=== PATIENT | female | born 1990 | race Caucasian/White ===

== ENCOUNTER → 2020-09-26 13:51 | Outpatient (CLI) | payer OTHER, SELFPAY ==
[2020-10-01 13:27] LABS: HPV Reflexed? NOT INDICATED
== END ==
PROVIDERS: Visit Provider Student in an Organized Health Care Education/Training Program
DX: Z12.4 Encounter for screening for malignant neoplasm of cervix (principal)
CPT/HCPCS: 88175; G0145

== ENCOUNTER → 2022-07-30 | Outpatient (CLI) | payer OTHER, BC, SELFPAY ==
[2022-07-30 13:20] LABS: NATERA MAILED SPECIMEN
== END | disposition home or self-care (01) ==
LOC: LAB 12:16
PROVIDERS: PCP Internal Medicine; Referring Provider Advanced Practice Midwife; Visit Provider Advanced Practice Midwife
DX: Z34.81 Encounter for supervision of other normal pregnancy, first trimester (principal)
CPT/HCPCS: 36415

== ENCOUNTER 2023-03-03 23:20 | Outpatient (CLI) | payer BC, SELFPAY ==
[2023-03-03 23:25] VITALS: BMI 33.3
[2023-03-03 23:30] VITALS: BP 140/75; PULSE 102; TEMP 36.2; O2SAT 96
[2023-03-03 23:35] VITALS: BP 122/73; PULSE 92
--- NOTE | 2023-03-03 23:41 | OB.TRI.NOTE ---
HPI - General HPI Narrative SPARKLE CARD, is a 33 F at 40.0 weeks gestation who presents to triage with contractions. She was seen in office today and started having contractions once home. Reports contractions every 4 minutes for 2-3 hours. Denies any loss of fluid or vaginal bleeding. Positive movement. has been uncomplicated. PFSH PFSH Home Medications [id number]-[id number] 1 mg tablet 1 tab PO DAILY 03/03/23 [History Last Taken 03/02/23] Allergy/AdvReac Type Severity Reaction Status Date / Time No Known Allergies Allergy Verified 03/03/23 23:33 ROS Eyes Eyes: Denies blurry vision Cardiovascular Cardiovascular: Reports none; Denies chest pain at rest, chest pain with activity or dizziness Respiratory/Chest Respiratory/Chest: Denies cough or dyspnea Gastrointestinal Gastrointestinal: Reports none and other; Denies diarrhea or vomiting Genitourinary Genitourinary: Denies dysuria Musculoskeletal Musculoskeletal: Reports none Integumentary Integumentary: Reports none; Denies rash Neurologic Neurologic: Denies dizziness, headache(s) or other visual disturbances Psychiatric Psychiatric: Reports none Physical Exam Const alert and no apparent distress General Appearance: cooperative Orientation / Consciousness: awake Exam Limitations: no limitations HEENT normocephalic Eyes General Eye: normal appearance of both eyes Neck full ROM Chest inspection of chest normal Resp normal respiratory effort and normal air movement Effort and Inspection: symmetric chest movement Auscultation: clear to auscultation bilaterally Cardio regular rate GI soft to palpation, non-tender and non-distended Inspection: and other Back/Spine normal ROM Extremity full ROM, normal capillary refill and no calf tenderness Skin no rashes or lesions noted Neuro oriented x3 and CN's II-XII intact bilaterally Psych mental status grossly normal NST FHR Rate Baby A Baseline: 140 Variability:: Moderate Accelerations:: 15 x 15 Decelerations:: None NST Reactive:: Yes FHR Category:: Category I Uterine Activity:: 2-4 minutes Assessment & Plan (1) Uterine contractions: (2) 40 weeks gestation of : PLAN: Plan CE /-2- no change from office exam and after extended monitoring NST reactive, Cat. 1 tracing Patient desires unmedicated labor and delivery D/C home with follow up in office Dr. Alejandra notified
== END 2023-03-04 03:17 | disposition home or self-care (01) ==
LOC: WPOUT 23:24 → WP 23:25
PROVIDERS: PCP Internal Medicine; Referring Provider Advanced Practice Midwife; Visit Provider Advanced Practice Midwife
DX: O47.1 False labor at or after 37 completed weeks of gestation (principal); Z3A.40 40 weeks gestation of pregnancy
CPT/HCPCS: 59025; 59050

== ENCOUNTER 2023-03-04 11:35 | Inpatient (IN) | payer BC, SELFPAY ==
[2023-03-04] VITALS (30 sets, daily range): BP systolic 109–138; BP diastolic 46–83; PULSE 86–114; TEMP 36.8–37.9; O2SAT 96–100; BMI 32.6
--- NOTE | 2023-03-04 | PLAC_PTH ---
PATIENT: SPARKLE CARD LOC: [facility] U#:[id number] AGE/SX: 33/F ROOM: WP002 RE03/04/[address]: Darcy Jansen CNM : 1990 BED: 1 DIS: 03/06/2023 SPEC #: [id number] RECD: 03/06/23 21:04 STATUS: AISHA SANDOVAL #: [id number] BINTA: 03/04/23 00:[address]: Darcy Jansen DEPT: SURGICAL PATHOLOGY RECD BY: Davide Jenkins ENTERED: 03/07/23 11:27 SP TYPE: PLACENTA OTHR DR: Dr. Bismark Harris MD Tissues: Placenta, NOS Procedures: Surgery Specimen Level V HEADER OPERATION: Vaginal delivery PRE-OP DIAGNOSIS: Marginal cord insertion TISSUE SUBMITTED: Placenta MICROSCOPIC DIAGNOSIS Placenta: Placental disc - third trimester placenta (372 gm). Membranes ? acute chorioamnionitis. Umbilical cord - three blood vessels and mild acute funisitis. SJ:nino 03/08/2023 MICROSCOPIC DESCRIPTION Slides are reviewed. GROSS DESCRIPTION SPECIMEN: PLACENTA / CLINICAL INFORMATION: A. Weight: 3.32 kg B. Gestational Age: 40 weeks C. Sex: Male PLACENTAL WEIGHT (POST FIXATION): 372 gm PLACENTAL DIMENSIONS: 15.5 x 14.0 x 2.5 cm PLACENTAL SHAPE: Usual ovoid PLACENTAL WEIGHT FOR GESTATIONAL AGE: Within 10-99th percentile MEMBRANES - Present A. Insertion: Marginal B. Site of rupture from edge: At edge of placental disc C. Color of membrane: Bryson-roe D. Abnormalities: None UMBILICAL CORD - Present A. Color: Bryson-roe B. Insertion: Membranous C. Length: 35.0 cm D. Diameter: 1.2 cm E. Number of vessels: Three F. Abnormalities: None PLACENTAL DISC - Present A. Color of surface: Bryson-roe B. surface abnormalities: None C. Maternal cotyledons: Intact with minimal tears D. Attached retro placental clot: No clot E. Cut surface: Dark red and spongy F. Lesions: None G. Separate clot: 7.0 x 8.0 x 1.5 cm SECTIONS SUBMITTED: 1. Umbilical cord ( end notched) 2. Umbilical cord, placental end 3. Membrane roll 4. Placental disc, and maternal surfaces 5. Placental disc, and maternal surfaces 6. Placental disc, and maternal surfaces AM:nino 03/07/2023 TC:2 CPT: 26970
--- NOTE | 2023-03-04 11:52 | PCM.HP.OB ---
HPI - General General Date of Admission: 03/04/23 Date of Service: 03/04/23 Chief Complaint: labor HPI Narrative SPARKLE CARD, is a 33-year-old 2 para 0-0-1-0 who presents at 40-1/7 weeks gestation with EDC of 03/03/2023 presents complaining contractions since yesterday morning. They have been every 5 minutes overnight. She denies any vaginal bleeding or leaking of fluid. When she arrived on the unit this morning, she stated she was just so exhausted and uncomfortable she had to come back in. She was observed last night and sent home. He was still 1-1/2 cm at that time. She is now 490-1 station. Maternal Data Information Final TEO: 03/03/23 Gestational age: 40 1/7 PFSH PFS Home Medications [id number]-[id number]-[id number] 1 mg tablet 1 tab PO DAILY 03/03/23 [History Last Taken 03/02/23] Allergy/AdvReac Type Severity Reaction Status Date / Time No Known Allergies Allergy Verified 03/03/23 23:33 ROS Constitutional Constitutional: Denies fatigue, fever(s) or malaise Eyes Eyes: Denies change in vision ENT HEENT: Denies dizziness or headache(s) Cardiovascular Cardiovascular: Denies chest pain, dyspnea or lightheadedness Respiratory/Chest Respiratory/Chest: Denies cough or dyspnea Gastrointestinal Gastrointestinal: Denies change in bowel habits Genitourinary Genitourinary: Denies burning urination or genital lesions Integumentary Integumentary: Denies rash Neurologic Neurologic: Denies confusion, dizziness, headache(s), numbness or weakness Physical Exam Const alert and no apparent distress General Appearance: cooperative HEENT normocephalic Resp normal respiratory effort Cardio regular rate GI soft to palpation GI Narrative: gravid, nontender, appropriate for gestational age Extremity no calf tenderness General Extremity: edema Skin no wounds Rashes: No rashes noted Psych activity/motor behavior normal Labs Labs Labs: No Data to Display Assessment & Plan (1) 40 weeks gestation of : PLAN: 33-year-old 2 para 0 presents at 40-1/7 weeks gestation with labor. Suspected rupture of membranes on exam. Estimated weight is less than 4500 g clinically and pelvis clinically adequate to expect vaginal delivery. May need Pitocin for augmentation. May have routine pain control measures as desired. (2) Spontaneous onset of labor:
[2023-03-04] MEDS: Lactated Ringers 1,000 ML 50 ML IV (12:18)
[2023-03-04 12:21] LABS: Absolute Lymphocyte Count 1.43 X10^3/uL (0.83-4.51); Absolute Neutrophil Count 15.3 X10^3/uL (2.0-7.7); Basophil# 0.04 X10^3/uL; Basophil% 0.2 % (0-1); Hematocrit 37.7 % (37-47); Hemoglobin 12.7 g/dL (12.0-15.0); Lymphocyte # 1.43 X10^3/ul (0.83-4.51); Lymphocyte % 8.1 % (19-41); Mean Corp Hgb Conc 33.7 g/dL (32-36); Mean Corpuscular Hgb 31.2 pg (27.0-32.0); Mean Corpuscular Volume 92.6 fL (81-99); Mean Platelet Vol. 11.8 fl (6.2-12.0); Monocyte# 0.79 X10^3/uL; Monocyte% 4.5 % (0-10); NRBC Flagged by Analyzer 0 % (0-5); Neutrophil % 86.6 % (47-70); Platelet Count 203 K/mm3 (150-450); RBC Distribution Width CV 12.6 % (11.6-14.6); RBC Distribution Width SD 42.5 fl (35.1-43.9); Red Blood Count 4.07 M/mm3 (4.2-5.4); White Blood Count 17.7 K/mm3 (4.4-11.0)
[2023-03-04] MEDS: LACTATED RINGERS 500 ML 999 ML IV (12:47)
[2023-03-04 12:51] LABS: Syphilis Antibodies Non-reactive
[2023-03-04] MEDS: Oxytocin 15 Units/NS 250ml 15 UNITS/250 ML IV.SOLN 2 UNITS IV (14:26)
[2023-03-04] MEDS: fentaNYL-bupivacaine (epidural) 100 ML BAG EPIDURAL (14:27)
[2023-03-04] MEDS: Oxytocin 15 Units/NS 250ml 15 UNITS/250 ML IV.SOLN 83 UNITS IV (18:25)
--- NOTE | 2023-03-04 19:10 | EX.PCM.OBRPT ---
Assessment & Plan (1) Vaginal delivery: (2) Second degree perineal laceration: (3) Retained placenta: (4) Lactating mother: Maternal Data Information TEO Calculator Estimated Delivery Date Method Current WG Current Estimate 03/03/23 Manual 40w 1d Final TEO Source: LMP Vaginal Delivery Maternal Presentation Maternal Presentation: Active Labor Type of Induction: Pitocin and Amniotomy Operative Information Date of Procedure: 03/04/23 Pre-Operative Diagnosis: active labor Post-Operative Diagnosis: , second degree perineal laceration Surgery / Procedure Performed: Spontaneous Vaginal Delivery Type of Anesthesia: Epidural Estimated Blood Loss: 500 ml Time of Delivery: 18:05 Findings Description of Procedure: Progressed to complete with urge to push. Epidural for pain management. of viable male over second degree perineal laceration. APGARS 8,9 respectively. Infant head delivered with body immediately forthcoming, CAN x 1 loose, delivered through. Placed on maternal abdomen, strong cry. Mouth and nares suctioned for secretions. Pitocin started for active 3rd stage management. Cord doubly clamped and cut after pulsations ceased, delayed cord clamping. Gentle cord traction and counter pressure and cord avulsed with patient pushing efforts. Marginal cord insertion and very thin unbilical cord. Manual removal of placenta presenting through cervical os. Patient tolerated well. Placenta delivered, 3 vessel cord intact. Perineum inspected and revealed 2nd degree perineal laceration and bilateral sulcus laceration. Repaired with 3.0 vicryl rapide x2 and epidural. Fundus firm and hemostasis achieved. EBL 500ml Mom and baby stable, planning to breastfeed. Family bonding well. Dr Ayoub. notified of delivery. Presentation: Vertex Amniotic Membrane Rupture Type: Artificial Amniotic Fluid Description: Clear Placental Delivery Description: Manual Removal Placenta Disposition: Sent to Pathology Cord Vessel Description: 3 Vessels Cord Entanglement: Around neck x 1, loose Nuchal Cord Compression: Without compression A Gender: Male (1 minute): 8 (5 minute): 9 Delayed Cord Clamping: Yes Post Vaginal Delivery Medications Given After Delivery: IV Pitocin Laceration: 2nd degree Complication Complications: None
[2023-03-04] MEDS: Cefazolin 2 GM in 0.9% Normal Saline 100 ML IV (21:27)
--- NOTE | 2023-03-04 23:41 | PCM.NY.DEL ---
Delivery Attendance Physical Exam Apgars/Vital Signs/Weight: Weight: 91.739 kg General Weight: 91.739 kg
--- NOTE | 2023-03-04 23:41 | PCM.NUR.HP ---
Objective Objective Data: 03/04/23 12:10 03/04/23 12:10 03/04/23 12:10 Temperature Temperature Source Pulse Rate 86 Blood Pressure 129/80 H BP Systolic 129 BP Diastolic 80 Pulse Ox 96 03/04/23 12:10 03/04/23 12:10 03/04/23 13:09 Temperature 99.3 F H 98.7 F Temperature Source Temporal Pulse Rate Blood Pressure BP Systolic BP Diastolic Pulse Ox 03/04/23 13:20 03/04/23 13:20 03/04/23 13:25 Temperature Temperature Source Pulse Rate 102 H Blood Pressure 137/79 H BP Systolic 137 BP Diastolic 79 Pulse Ox 98 03/04/23 13:25 03/04/23 13:31 03/04/23 13:31 Temperature Temperature Source Pulse Rate 111 H 96 Blood Pressure 127/74 H BP Systolic 127 BP Diastolic 74 Pulse Ox 03/04/23 13:36 03/04/23 13:36 03/04/23 13:41 Temperature Temperature Source Pulse Rate 96 Blood Pressure 129/73 H 128/70 H BP Systolic 129 128 BP Diastolic 73 70 Pulse Ox 03/04/23 13:41 03/04/23 13:47 03/04/23 13:47 Temperature Temperature Source Pulse Rate 105 H 95 Blood Pressure 129/71 H BP Systolic 129 BP Diastolic 71 Pulse Ox 03/04/23 13:52 03/04/23 13:52 03/04/23 13:56 Temperature Temperature Source Pulse Rate 99 Blood Pressure 127/72 H 126/73 H BP Systolic 127 126 BP Diastolic 72 73 Pulse Ox 03/04/23 13:56 03/04/23 14:01 03/04/23 14:01 Temperature Temperature Source Pulse Rate 98 95 Blood Pressure 131/73 H BP Systolic 131 BP Diastolic 73 Pulse Ox 03/04/23 14:06 03/04/23 14:06 03/04/23 14:11 Temperature Temperature Source Pulse Rate 106 H Blood Pressure 121/76 H 122/66 H BP Systolic 121 122 BP Diastolic 76 66 Pulse Ox 03/04/23 14:11 03/04/23 14:17 03/04/23 14:17 Temperature Temperature Source Pulse Rate 88 94 Blood Pressure 123/71 H BP Systolic 123 BP Diastolic 71 Pulse Ox 03/04/23 14:21 03/04/23 14:21 03/04/23 14:30 Temperature 98.6 F Temperature Source Pulse Rate 103 H Blood Pressure 138/83 H BP Systolic 138 BP Diastolic 83 Pulse Ox 03/04/23 15:06 03/04/23 15:06 03/04/23 15:05 Temperature Temperature Source Pulse Rate 104 H Blood Pressure 114/71 BP Systolic 114 BP Diastolic 71 Pulse Ox 99 03/04/23 15:06 03/04/23 15:06 03/04/23 16:09 Temperature 98.2 F Temperature Source Temporal Pulse Rate Blood Pressure 126/74 H BP Systolic 126 BP Diastolic 74 Pulse Ox 03/04/23 16:09 03/04/23 16:09 03/04/23 16:30 Temperature Temperature Source Temporal Pulse Rate 103 H Blood Pressure BP Systolic BP Diastolic Pulse Ox 100 03/04/23 16:30 03/04/23 18:30 03/04/23 18:30 Temperature 98.2 F Temperature Source Pulse Rate 108 H Blood Pressure 124/80 H BP Systolic 124 BP Diastolic 80 Pulse Ox 03/04/23 18:30 03/04/23 18:45 03/04/23 18:45 Temperature Temperature Source Temporal Pulse Rate 106 H Blood Pressure 112/46 L BP Systolic 112 BP Diastolic 46 Pulse Ox 03/04/23 18:30 03/04/23 19:00 03/04/23 19:00 Temperature 100.1 F H Temperature Source Pulse Rate 114 H Blood Pressure 113/52 L BP Systolic 113 BP Diastolic 52 Pulse Ox 03/04/23 19:12 03/04/23 19:14 03/04/23 19:14 Temperature 99.6 F H Temperature Source Pulse Rate 96 Blood Pressure 118/68 BP Systolic 118 BP Diastolic 68 Pulse Ox 03/04/23 19:29 03/04/23 19:29 03/04/23 19:44 Temperature Temperature Source Pulse Rate 100 Blood Pressure 110/63 113/62 BP Systolic 110 113 BP Diastolic 63 62 Pulse Ox 03/04/23 19:44 03/04/23 19:44 03/04/23 19:44 Temperature 100.3 F H Temperature Source Temporal Pulse Rate 93 Blood Pressure BP Systolic BP Diastolic Pulse Ox 03/04/23 19:59 03/04/23 19:59 03/04/23 19:58 Temperature 99.7 F H Temperature Source Pulse Rate 103 H Blood Pressure 109/61 BP Systolic 109 BP Diastolic 61 Pulse Ox 03/04/23 20:14 03/04/23 20:14 Temperature Temperature Source Pulse Rate 97 Blood Pressure 117/62 BP Systolic 117 BP Diastolic 62 Pulse Ox Weight: 91.739 kg Vital Signs Temp Pulse BP Pulse Ox 03/04/23 20:14 97 03/04/23 20:14 117/62 03/04/23 19:58 99.7 F H 03/04/23 19:59 103 H 03/04/23 19:59 109/61 03/04/23 19:44 100.3 F H 03/04/23 19:44 93 03/04/23 19:44 113/62 03/04/23 19:29 100 03/04/23 19:29 110/63 03/04/23 19:14 96 03/04/23 19:14 118/68 03/04/23 19:12 99.6 F H 03/04/23 19:00 114 H 03/04/23 19:00 113/52 L 03/04/23 18:30 100.1 F H 03/04/23 18:45 106 H 03/04/23 18:45 112/46 L 03/04/23 18:30 108 H 03/04/23 18:30 124/80 H 03/04/23 16:30 98.2 F 03/04/23 16:09 100 03/04/23 16:09 103 H 03/04/23 16:09 126/74 H 03/04/23 15:06 98.2 F 03/04/23 15:05 99 03/04/23 15:06 104 H 03/04/23 15:06 114/71 03/04/23 14:30 98.6 F 03/04/23 14:21 103 H 03/04/23 14:21 138/83 H 03/04/23 14:17 94 03/04/23 14:17 123/71 H 03/04/23 14:11 88 03/04/23 14:11 122/66 H 03/04/23 14:06 106 H 03/04/23 14:06 121/76 H 03/04/23 14:01 95 03/04/23 14:01 131/73 H 03/04/23 13:56 98 03/04/23 13:56 126/73 H 03/04/23 13:52 99 03/04/23 13:52 127/72 H 03/04/23 13:47 95 03/04/23 13:47 129/71 H 03/04/23 13:41 105 H 03/04/23 13:41 128/70 H 03/04/23 13:36 96 03/04/23 13:36 129/73 H 03/04/23 13:31 96 03/04/23 13:31 127/74 H 03/04/23 13:25 111 H 03/04/23 13:25 137/79 H 03/04/23 13:20 98 03/04/23 13:20 102 H 03/04/23 13:09 98.7 F 03/04/23 12:10 99.3 F H 03/04/23 12:10 96 03/04/23 12:10 86 03/04/23 12:10 129/80 H Lab tests last 48H 03/04/23 03/04/23 03/04/23 11:55 11:55 11:55 WBC 17.7 H RBC 4.07 L Hgb 12.7 Hct 37.7 MCV 92.6 MCH 31.2 MCHC 33.7 RDW Std Deviation 42.5 RDW Coeff of Arvin 12.6 Plt Count 203 MPV 11.8 Immature Gran % (Auto) 0.600 Neut % (Auto) 86.6 H Lymph % (Auto) 8.1 L [place] % (Auto) 4.5 Eos % (Auto) 0.0 Baso % (Auto) 0.2 Absolute Neuts (auto) 15.3 H Absolute Lymphs (auto) 1.43 Nucleated RBC % 0 Syphilis Total Ab Non-reactive Blood Type A POSITIVE Antibody Screen NEGATIVE Vital Signs Vital Signs Vital Signs: 03/04/23 12:10 03/04/23 12:10 03/04/23 12:10 Temperature Temperature Source Pulse Rate 86 Blood Pressure 129/80 H BP Systolic 129 BP Diastolic 80 Pulse Ox 96 03/04/23 12:10 03/04/23 12:10 03/04/23 13:09 Temperature 99.3 F H 98.7 F Temperature Source Temporal Pulse Rate Blood Pressure BP Systolic BP Diastolic Pulse Ox 03/04/23 13:20 03/04/23 13:20 03/04/23 13:25 Temperature Temperature Source Pulse Rate 102 H Blood Pressure 137/79 H BP Systolic 137 BP Diastolic 79 Pulse Ox 98 03/04/23 13:25 03/04/23 13:31 03/04/23 13:31 Temperature Temperature Source Pulse Rate 111 H 96 Blood Pressure 127/74 H BP Systolic 127 BP Diastolic 74 Pulse Ox 03/04/23 13:36 03/04/23 13:36 03/04/23 13:41 Temperature Temperature Source Pulse Rate 96 Blood Pressure 129/73 H 128/70 H BP Systolic 129 128 BP Diastolic 73 70 Pulse Ox 03/04/23 13:41 03/04/23 13:47 03/04/23 13:47 Temperature Temperature Source Pulse Rate 105 H 95 Blood Pressure 129/71 H BP Systolic 129 BP Diastolic 71 Pulse Ox 03/04/23 13:52 03/04/23 13:52 03/04/23 13:56 Temperature Temperature Source Pulse Rate 99 Blood Pressure 127/72 H 126/73 H BP Systolic 127 126 BP Diastolic 72 73 Pulse Ox 03/04/23 13:56 03/04/23 14:01 03/04/23 14:01 Temperature Temperature Source Pulse Rate 98 95 Blood Pressure 131/73 H BP Systolic 131 BP Diastolic 73 Pulse Ox 03/04/23 14:06 03/04/23 14:06 03/04/23 14:11 Temperature Temperature Source Pulse Rate 106 H Blood Pressure 121/76 H 122/66 H BP Systolic 121 122 BP Diastolic 76 66 Pulse Ox 03/04/23 14:11 03/04/23 14:17 03/04/23 14:17 Temperature Temperature Source Pulse Rate 88 94 Blood Pressure 123/71 H BP Systolic 123 BP Diastolic 71 Pulse Ox 03/04/23 14:21 03/04/23 14:21 03/04/23 14:30 Temperature 98.6 F Temperature Source Pulse Rate 103 H Blood Pressure 138/83 H BP Systolic 138 BP Diastolic 83 Pulse Ox 03/04/23 15:06 03/04/23 15:06 03/04/23 15:05 Temperature Temperature Source Pulse Rate 104 H Blood Pressure 114/71 BP Systolic 114 BP Diastolic 71 Pulse Ox 99 03/04/23 15:06 03/04/23 15:06 03/04/23 16:09 Temperature 98.2 F Temperature Source Temporal Pulse Rate Blood Pressure 126/74 H BP Systolic 126 BP Diastolic 74 Pulse Ox 03/04/23 16:09 03/04/23 16:09 03/04/23 16:30 Temperature Temperature Source Temporal Pulse Rate 103 H Blood Pressure BP Systolic BP Diastolic Pulse Ox 100 03/04/23 16:30 03/04/23 18:30 03/04/23 18:30 Temperature 98.2 F Temperature Source Pulse Rate 108 H Blood Pressure 124/80 H BP Systolic 124 BP Diastolic 80 Pulse Ox 03/04/23 18:30 03/04/23 18:45 03/04/23 18:45 Temperature Temperature Source Temporal Pulse Rate 106 H Blood Pressure 112/46 L BP Systolic 112 BP Diastolic 46 Pulse Ox 03/04/23 18:30 03/04/23 19:00 03/04/23 19:00 Temperature 100.1 F H Temperature Source Pulse Rate 114 H Blood Pressure 113/52 L BP Systolic 113 BP Diastolic 52 Pulse Ox 03/04/23 19:12 03/04/23 19:14 03/04/23 19:14 Temperature 99.6 F H Temperature Source Pulse Rate 96 Blood Pressure 118/68 BP Systolic 118 BP Diastolic 68 Pulse Ox 03/04/23 19:29 03/04/23 19:29 03/04/23 19:44 Temperature Temperature Source Pulse Rate 100 Blood Pressure 110/63 113/62 BP Systolic 110 113 BP Diastolic 63 62 Pulse Ox 03/04/23 19:44 03/04/23 19:44 03/04/23 19:44 Temperature 100.3 F H Temperature Source Temporal Pulse Rate 93 Blood Pressure BP Systolic BP Diastolic Pulse Ox 03/04/23 19:59 03/04/23 19:59 03/04/23 19:58 Temperature 99.7 F H Temperature Source Pulse Rate 103 H Blood Pressure 109/61 BP Systolic 109 BP Diastolic 61 Pulse Ox 03/04/23 20:14 03/04/23 20:14 Temperature Temperature Source Pulse Rate 97 Blood Pressure 117/62 BP Systolic 117 BP Diastolic 62 Pulse Ox Weight Weight: 91.739 kg Body Mass Index (BMI) 32.6 General Weight: 91.739 kg
--- NOTE | 2023-03-04 23:41 | TRANSUM.NUR ---
Providers Date of Admission: 03/04/23 Primary Care Physician: Dr. Bismark Harris MD Reason For Visit: VAGINAL DELIVERY Diagnosis Discharge Diagnosis (1) Vaginal delivery: Status: Acute Code(s): O80 - Encounter for full-term uncomplicated delivery (2) Second degree perineal laceration: Status: Acute Code(s): O70.1 - Second degree perineal laceration during delivery (3) Retained placenta: Status: Acute Code(s): O73.0 - Retained placenta without hemorrhage (4) Lactating mother: Status: Acute Code(s): Z39.1 - Encounter for care and examination of lactating mother Assessment Medication Administrations: Medication Administrations Generic Name Dose Route Start Last Admin Trade Name Freq PRN Reason Stop Dose Admin Oxytocin/Sodium Chloride 15 units in 250 mls @ 83 mls/hr 03/04/23 21:00 03/04/23 21:30 IV 03/05/23 00:00 Infused .Q3H1M SOFIA Infusion Discontinued Medications Generic Name Dose Route Start Last Admin Trade Name Freq PRN Reason Stop Dose Admin Fentanyl/Bupivacaine/Sodium Chlor 0 ml 03/04/23 13:40 03/04/23 14:27 Fentanyl-Bupivacaine (Epidural) 100 Ml Bag EPIDURAL 100 ml UD SOFIA Administration Protocol Lactated Ringer's 500 mls @ 999 mls/hr 03/04/23 11:54 03/04/23 13:21 Lactated Ringers IV Infused .Q31M PRN Infusion Epidural Lactated Ringer's 1,000 mls @ 50 mls/hr 03/04/23 11:55 03/04/23 12:18 IV 50 mls/hr .Q20H SOFIA Administration Oxytocin/Sodium Chloride 15 units in 250 mls @ 2 mls/hr 03/04/23 14:10 03/04/23 18:05 IV Infused .Q125H SOFIA Infusion Cefazolin Sodium 2 gm/ Sodium 110 mls @ 150 mls/hr 03/04/23 20:53 03/04/23 22:15 Chloride IV 03/04/23 21:36 Infused X1 ONE Infusion History/Labs/Procedures History/Labs/Procedures: Temp Pulse BP Pulse Ox 99.7 F H 97 117/62 100 03/04/23 19:58 03/04/23 20:14 03/04/23 20:14 03/04/23 16:09 Weight: 91.739 kg Labs (Last 48 Hours) 03/04/23 03/04/23 03/04/23 11:55 11:55 11:55 WBC 17.7 H RBC 4.07 L Hgb 12.7 Hct 37.7 MCV 92.6 MCH 31.2 MCHC 33.7 RDW Std Deviation 42.5 RDW Coeff of Arvin 12.6 Plt Count 203 MPV 11.8 Immature Gran % (Auto) 0.600 Neut % (Auto) 86.6 H Lymph % (Auto) 8.1 L [place] % (Auto) 4.5 Eos % (Auto) 0.0 Baso % (Auto) 0.2 Absolute Neuts (auto) 15.3 H Absolute Lymphs (auto) 1.43 Nucleated RBC % 0 Syphilis Total Ab Non-reactive Blood Type A POSITIVE Antibody Screen NEGATIVE Medications at Discharge Home Medications [id number] 1 mg tablet 1 tab PO DAILY 03/03/23 General Weight: 91.739 kg Discharge Plan Admission Admit Date/Time: 03/04/23 11:35 Attending Provider: Darcy Jansen Primary Care Provider: Bismark Harris Discharge Orders/Prescriptions Prescriptions: No Action 1 mg Tablet 1 tab PO DAILY Referrals / Follow Up: Bismark Harris MD [Primary Care Provider] -
[2023-03-05] VITALS: BP 113/79; PULSE 105; RESP 16; TEMP 36.9
--- NOTE | 2023-03-05 00:25 | NURSING ---
Mother began pumping at 23:15. She is pumping both breasts for 20 minutes every 3hrs then hand expressing and collecting her colostrum in a syringe. At this fist pump session, she obtained drops from pumping which were swabbed and taken to the [facility], then collected 3cc of colostrum by hand expressing. Mother will continue with this pumping plan every 3hrs.
[2023-03-05 04:00] VITALS: BP 106/54; PULSE 93; RESP 16; TEMP 36.7
[2023-03-05 04:49] LABS: Absolute Lymphocyte Count 1.73 X10^3/uL (0.83-4.51); Absolute Neutrophil Count 14.1 X10^3/uL (2.0-7.7); Basophil# 0.05 X10^3/uL; Basophil% 0.3 % (0-1); Eosinophil# 0.02 X10^3/uL; Eosinophils% 0.1 % (0-5); Hematocrit 30.4 % (37-47); Hemoglobin 10.2 g/dL (12.0-15.0); Lymphocyte # 1.73 X10^3/ul (0.83-4.51); Lymphocyte % 10.2 % (19-41); Mean Corp Hgb Conc 33.6 g/dL (32-36); Mean Corpuscular Hgb 31.6 pg (27.0-32.0); Mean Corpuscular Volume 94.1 fL (81-99); Mean Platelet Vol. 11.1 fl (6.2-12.0); Monocyte# 0.93 X10^3/uL; Monocyte% 5.5 % (0-10); NRBC Flagged by Analyzer 0 % (0-5); Neutrophil # 14.13 X10^3/uL (2.7-7.7); Neutrophil % 83.3 % (47-70); Platelet Count 169 K/mm3 (150-450); RBC Distribution Width CV 12.6 % (11.6-14.6); RBC Distribution Width SD 43.2 fl (35.1-43.9); Red Blood Count 3.23 M/mm3 (4.2-5.4)
[2023-03-05] MEDS: Acetaminophen 500 MG Tablet 1000 MG PO (05:37)
[2023-03-05 08:03] VITALS: BP 93/52; PULSE 81; RESP 16; TEMP 36.3
--- NOTE | 2023-03-05 10:12 | PN.OBGYN_ITS ---
Subjective Subjective Doing well per patient and nursing staff. Ambulating and taking PO without difficulty. Voiding and passing flatus. Pain controlled. Denies headache, visual changes, chest pain, shortness of breath, leg pain or increased bleeding. Lochia normal. Objective Data Objective Data Vital Signs: Vital Signs Temp Pulse Resp BP Pulse Ox O2 Del Method 97.3 F L 81 16 93/52 L 100 Room Air 03/05/23 08:03 03/05/23 08:03 03/05/23 08:03 03/05/23 08:03 03/04/23 16:09 03/05/23 08:03 Oxygen Delivery Method Room Air Weight: 202 lb 4 oz Body Mass Index (BMI) 32.6 Intake & Output: Intake and Output for Last 24 Hours 03/03/23 03/04/23 03/05/23 23:59 23:59 23:59 Intake Total 881.73 / 1466.73 585 / 585 Output Total 600 / 600 500 / 500 Balance 281.73 / 866.73 85 / 85 Lab / Micro Data Result Diagrams: 03/05/23 04:39 Labs: Laboratory Results - last 24 hr 03/04/23 11:55: WBC 17.7 H, RBC 4.07 L, Hgb 12.7, Hct 37.7, MCV 92.6, MCH 31.2, MCHC 33.7, RDW Std Deviation 42.5, RDW Coeff of Arvin 12.6, Plt Count 203, MPV 11.8, Immature Gran % (Auto) 0.600, Neut % (Auto) 86.6 H, Lymph % (Auto) 8.1 L, [place] % (Auto) 4.5, Eos % (Auto) 0.0, Baso % (Auto) 0.2, Absolute Neuts (auto) 15.3 H, Absolute Lymphs (auto) 1.43, Nucleated RBC % 0 03/04/23 11:55: Blood Type A POSITIVE, Antibody Screen NEGATIVE 03/04/23 11:55: Syphilis Total Ab Non-reactive 03/05/23 04:39: WBC 17.0 H, RBC 3.23 L, Hgb 10.2 L, Hct 30.4 L, MCV 94.1, MCH 31.6, MCHC 33.6, RDW Std Deviation 43.2, RDW Coeff of [place]vin 12.6, Plt Count 169, MPV 11.1, Immature Gran % (Auto) 0.600, Neut % (Auto) 83.3 H, Lymph % (Auto) 10.2 L, [place] % (Auto) 5.5, Eos % (Auto) 0.1, Baso % (Auto) 0.3, Absolute Neuts (auto) 14.1 H, Absolute Lymphs (auto) 1.73, Nucleated RBC % 0 ROS Constitutional Constitutional: Reports systems reviewed and no addt'l complaints, except as documented; Denies headache(s) Eyes Eyes: Denies acute decrease in peripheral vision, blurry vision or change in vision ENT HEENT: Reports systems reviewed and no addt'l complaints, except as documented Cardiovascular Cardiovascular: Denies chest pain or dizziness Respiratory/Chest Respiratory/Chest: Denies cough, dyspnea, dyspnea on exertion, shortness of breath at rest or shortness of breath with exertion Gastrointestinal Gastrointestinal: Denies abdominal pain, diarrhea, nausea or vomiting Genitourinary Genitourinary: Denies abdominal discomfort Musculoskeletal Musculoskeletal: Denies limited range of motion Integumentary Integumentary: Reports systems reviewed and no addt'l complaints, except as documented Neurologic Neurologic: Reports systems reviewed and no addt'l complaints, except as documented Psychiatric Psychiatric: Reports systems reviewed and no addt'l complaints, except as documented Endocrine Endocrinology: Reports systems reviewed and no addt'l complaints, except as documented Hematologic/Lymphatic Hematologic/Lymphatic: Reports systems reviewed and no addt'l complaints, except as documented Allergic/Immunologic Allergic/Immunologic: Reports systems reviewed and no addt'l complaints, except as documented Physical Exam Const alert and oriented x3 General Appearance: cooperative Orientation / Consciousness: awake, oriented to person, oriented to place and oriented to time Exam Limitations: no limitations HEENT normocephalic Head and Scalp: normal to inspection, normocephalic and atraumatic Face and Sinus: normal facial exam Eyes General Eye: normal appearance of both eyes Neck full ROM Chest Chest: symmetrical chest wall rise Resp normal respiratory effort and normal air movement Auscultation: clear to auscultation bilaterally Cardio regular rate, regular rhythm, S1 normal heart sound, S2 normal heart sound, no murmurs, no rub, no gallops and no clicks GI normal to inspection, nondistended, normoactive bowel sounds and non-tender appearance of the vagina normal Bladder / Kidney Exam: no CVA tenderness Back/Spine normal ROM Extremity normal to inspection and full ROM Skin no rashes or lesions noted Neuro oriented x3, CN's II-XII intact bilaterally and moves all extremities Sensorium / Orientation: awake, alert and oriented to person Motor Exam: clonus absent Deep Tendon Reflexes: Rt Patellar (L4): 2+ and Lt Patellar (L4): 2+ Assessment & Plan (1) Lactating mother: (2) Second degree perineal laceration: (3) Vaginal delivery: PLAN: Plan 1) PPD#1 2) Vitals stable 3) I&O 4) Pain management 5) Baby in SCN, pumping 6) Planning D/C tomorrow or to hotel status
[2023-03-05 11:26] VITALS: BP 115/71; PULSE 97; RESP 16; TEMP 36.8
[2023-03-05] MEDS: Prenatal Vits Tablet 1 TABLET PO (11:32)
[2023-03-05 15:41] VITALS: BP 110/74; PULSE 103; RESP 16; TEMP 37.2
[2023-03-05 19:59] VITALS: BP 126/78; PULSE 112; RESP 20; TEMP 37.1; O2SAT 97
[2023-03-06 03:00] VITALS: BP 129/69; PULSE 89; RESP 16; TEMP 36.8
[2023-03-06 09:30] VITALS: BP 119/86; PULSE 77; RESP 16; TEMP 36.1
--- NOTE | 2023-03-06 09:32 | PCM.PN.OB ---
Subjective Subjective pain minimal. Average lochia. No [place] or visual changes Objective Data Objective Data Vital Signs: Vital Signs Temp Pulse Resp BP Pulse Ox O2 Del Method 98.2 F 89 16 129/69 H 97 Room Air 03/06/23 03:00 03/06/23 03:00 03/06/23 03:00 03/06/23 03:00 03/05/23 19:59 03/06/23 03:00 Oxygen Delivery Method Room Air Weight: 91.739 kg Body Mass Index (BMI) 32.6 Intake & Output: Intake and Output for Last 24 Hours 03/04/23 03/05/23 03/06/23 23:59 23:59 23:59 Intake Total 881.73 / 1466.73 585 / 585 Output Total 600 / 600 500 / 500 Balance 281.73 / 866.73 85 / 85 Lab / Micro Data Result Diagrams: 03/05/23 04:39 Physical Exam Const alert and no apparent distress Narrative: Fundus firm, below umbilicus. Assessment & Plan (1) Vaginal delivery: PLAN: Dong well. is SCN and will likely be d/petey today. if not patient will be d/petey to hotel. pumping.
--- NOTE | 2023-03-06 09:34 | PCM.DC.SUM ---
Providers Date of Admission: 03/04/23 Date of Discharge: 03/06/23 Primary Care Physician: Dr. Bismark Harris MD Reason For Visit: VAGINAL DELIVERY Diagnosis Discharge Diagnosis (1) Vaginal delivery: Status: Acute Code(s): O80 - Encounter for full-term uncomplicated delivery Plan: Dong well. is SCN and will likely be d/petey today. if not patient will be d/petey to hotel. pumping. Medications at Discharge Home Medications [id number] 1 mg tablet 1 tab PO DAILY 03/03/23 Hospital Course Operations None Summary of Care Provided Hospital Course: 41-year-old Fe male at 40 weeks gestation admitted in spontaneous labor. She had a spontaneous vaginal delivery on 03/04/2023 with a second-degree laceration. Her course was unremarkable. The was in the special care nursery. By day #2 patient was ready for discharge with routine instructions. She declined any prescriptions Weight / BMI Weight Weight: 91.739 kg Body Mass Index (BMI) 32.6 ABG / Lab / Microbiology Data Result Diagrams: 03/05/23 04:39 Meaningful Use Info Meaningful Use Diagnoses (Choose all that apply): None applicable Discharge Plan Admission Admit Date/Time: 03/04/23 11:35 Primary Reason for Your Visit: Labor and delivery Attending Provider: Darcy Jansen Primary Care Provider: Bismark Harris Discharge Orders/Prescriptions Prescriptions: Continued [id number] 1 mg Tablet 1 tab PO DAILY Referrals / Follow Up: Bismark Harris MD [Primary Care Provider] - Disposition Disposition (needs filled in before D/C Order can be placed): Home, Self Care
[2023-03-06 13:23] VITALS: BP 123/76; PULSE 67; RESP 16; TEMP 36.6
[2023-03-06] MEDS: Prenatal Vits Tablet 1 TABLET PO (13:31)
[2023-03-08 10:13] LABS: Pathology Specimen OB SEE PATHOLOGY REPORT
== END 2023-03-06 17:00 | disposition home or self-care (01) | DRG 807 ==
LOC: WPOUT 11:45 → WP 11:45
PROVIDERS: Obstetrics & Gynecology; Admitting Provider Advanced Practice Midwife; PCP Internal Medicine; Referring Provider Advanced Practice Midwife; Visit Provider Advanced Practice Midwife
DX: O43.193 Other malformation of placenta, third trimester (principal); O69.81X0 Labor and delivery complicated by cord around neck, without compression, not applicable or unspecified; O70.1 Second degree perineal laceration during delivery; Z37.0 Single live birth; Z3A.40 40 weeks gestation of pregnancy
CPT/HCPCS: 59025; 59050; 85025; 86780; 86850; 86900; 86901; 88307; 99221; J7120; G0378